=== PATIENT | female | born 1985 | race Two or more races ===

== ENCOUNTER 2024-12-23 10:20 | Day surgery (SDC) | payer MEDICAID, SELFPAY ==
[2024-12-22 12:36] VITALS: BMI 22.6
[2024-12-22 13:15] LABS: Basophils # (Auto) 0.1 Thou/mm3 (0.0-0.2); Basophils % (Auto) 1 % (0-2.5); Eosinophils # (Auto) 0.2 Thou/mm3 (0.0-0.5); Eosinophils % (Auto) 3 % (0-10); Hematocrit 38.6 % (36.0-46.0); Hemoglobin 12.8 g/dL (12.0-16.0); Immature Granulocytes Auto 0.02 Thou/mm3 (0.00-0.00); Lymphocytes # (Auto) 2.6 Thou/mm3 (1.0-4.8); Lymphocytes % (Auto) 39 % (10-50); Mean Corpuscular HGB Conc 33.2 g/dl (31.0-37.0); Mean Corpuscular Hemoglobin 28.0 pg (25.0-35.0); Mean Corpuscular Volume 85 fL (80-100); Monocytes # (Auto) 0.4 Thou/mm3 (0.0-0.8); Monocytes % (Auto) 6 % (0-12); Neutrophils # (Auto) 3.5 Thou/mm3 (1.8-7.7); Neutrophils % (Auto) 51 % (37-80); Nucleated Red Blood Cell # 0.00 Thou/mm3 (0.00-0.00); Nucleated Red Blood Cell % 0 /100 WBC (0); Platelet Count 241 Thou/mm3 (140-440); RDW Standard Deviation 42.8 fL (36.4-46.3); Red Blood Count 4.57 Miln/mm3 (4.00-5.20); White Blood Count 6.8 Thou/mm3 (3.6-11.0)
[2024-12-22 13:25] LABS: INR 1.0 (0.9-1.3); Partial Thromboplastin Time 29.2 Seconds (22.0-36.0); Prothrombin Time 11.1 Seconds (9.0-12.2)
[2024-12-22 13:31] LABS: Anion Gap 9 (7-16); BUN/Creatinine Ratio 11 Ratio (12-20); Blood Urea Nitrogen 8 mg/dL (9-23); Calcium 10.2 mg/dL (8.3-10.6); Carbon Dioxide 25.1 mMol/L (20.0-31.0); Chloride 106 mMol/L (98-107); Creatinine (Component) 0.7 mg/dL (0.6-1.3); Estimated Creatinine Clearance 83.6 mL/min (>60); Glucose 87 mg/dL (74-106); Osmolality,Calculated 276 (275-295); Potassium 4.1 mMol/L (3.4-5.1); Sodium 140 mMol/L (136-145); eGFR > 60 See Note
--- NOTE | 2024-12-22 15:40 | ESHP_ITS ---
RE: SUSIE DAVILA : 1985 DATE OF ADMISSION: 12/22/2024 The patient came to my office on 12/22/2024 for detailed preop history and physical examination. HISTORY OF PRESENT COMPLAINT: The patient presented to me earlier with history of pain, swelling, clicking, and locking of the right knee joint. Intensity of pain is 8-9/10. Unable to sleep. The patient is having difficulty in walking. Sleep is affected. Quality of life and activities of daily living is affected. PAST MEDICAL HISTORY: No history of diabetes mellitus, high blood pressure, asthma, seizure, chest pain, myocardial infarction or bleeding disorder. PAST SURGICAL HISTORY: None. DRUG HISTORY: Pain medication on and off. ALLERGIES: NONE KNOWN. FAMILY HISTORY AND SOCIAL HISTORY: Noncontributory in this case. PHYSICAL EXAMINATION: GENERAL: Normal built lady. VITAL SIGNS: Pulse is 86 per minute. Blood pressure is 120/77. NECK: Soft, supple. No masses felt. Trachea is centrally placed. CARDIOVASCULAR SYSTEM: First and second heart sounds normal. No murmur heard. RESPIRATORY SYSTEM: Bilateral vesicular breath sounds. CHEST: Clear. ABDOMEN: Soft, no masses felt. Bowel sounds present. EXTREMITIES: Right knee examination revealed mild swelling. There is 2+ tenderness. Active range of motion 0 to 115 degrees of flexion. Yary's test is positive. Drawer test and Adri test are negative. Neurovascularly, it is intact. Since the patient is symptomatic, an MRI scan confirmed torn meniscus with DJD and synovitis with increased joint fluid. Therefore, right knee arthroscopy was discussed and advised. Risks with anesthesia were explained and that includes, but not limited to reaction to anesthetic agents, cardiac arrest, rarely it might be fatal. Risk with operation includes infection and if that happens, the patient may need further surgical procedure. Other risks include delayed healing, wound dehiscence, etc. No guarantee is given regarding outcome of the procedure and/or relief of symptoms. The appropriate lab work was done. Surgery is booked for 12/23/2024. DT: 14:22:00 TT: 15:38:00 Ref: [id number] - TID: [id number]
[2024-12-23] VITALS (8 sets, daily range): BP systolic 99–120; BP diastolic 68–76; PULSE 76–97; RESP 12–20; TEMP 36.3–36.6; O2SAT 99–100; BMI 21.9
--- NOTE | 2024-12-23 14:17 | PD.SUROPNT ---
Date of Procedure 12/23/24 Pre Op Diagnosis 1. Torn medial meniscus right knee joint 2. 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 Partial medial meniscectomy 2. Partial lateral meniscectomy 3. Chondroplasty 4 partial synovectomy including excision plica Findings Refer dictation Procedure Description The patient was given general endotracheal anesthesia. Once satisfactory anesthesia was achieved, tourniquet was placed on right upper thigh. Following that the part was thoroughly prepped and draped. After using Esmarch the tourniquet pressure was raised to 350 mmHg. A skin incision was made proximal to lateral tibial plateau and arthroscope was introduced in the usual fashion. Another a skin incision was made in suprapatellar pouch area and outlet was established. The findings were noted as below. In suprapatellar pouch area significant synovial tissue inflammation was present. Medial plica was present as well. The undersurface of patella showed grade 2/3 chondromalacia. The anterior femoral condyle showed grade 3 chondromalacia. Soft tissue impingement was present. The patellar tracking was checked and found to be good. The medial compartment showed grade 2/3 chondromalacia for medial tibial plateau and medial femoral condyle. The medial meniscus showed degeneration and tear of the anterior horn. Another skin incision was made proximal to medial tibial plateau and a probe was introduced and findings were confirmed. The anterior cruciate ligament was intact. The anterior drawer test was performed and found to be good. The lateral compartment showed intact lateral femoral condyle . The tibial plateau showed some areas which was of a small sized completely denuded of cartilage. Those were on the most lateral side and anterior aspect of the lateral tibial plateau. Lateral meniscus showed complex tear of the body and anterior horn. A shaver was introduced and shaving of the anterior horn of medial meniscus was performed. Soft tissue impingement was shaved off. A basket was introduced and torn part of the body of the lateral meniscus was excised. With the help of lateral biter the torn part was excised. The shaving of the body and anterior horn of lateral meniscus was done. The chondroplasty of the anterior femoral condyle was performed. The soft tissue impingement was shaved off. A partial synovectomy including excision of plica was performed. Copious amount of irrigation was used to irrigate the knee joint. All the debris were removed. 3-0 Prolene was used to close the wound. About 20 mL of quarter percent Marcaine along with 10 mg of Duramorph was injected. Patient tolerated procedure well. Estimated blood loss was about 5 mL. Prognosis in this case is fair to good. Patient was taken to the recovery room in good condition. Anesthesia GETA Pathology / specimen None Estimated Blood Loss 2 Surgeon Berlin Sutherland MD Surgical Staff Operation Date: 12/23/24 13:30 Case Staff [employer]: Brent Serna
--- NOTE | 2024-12-23 14:25 | SUR.PHASEI ---
pt received from OR in recovery bay 5. pt asleep but responds to voice, breathing unlabored on oxymask 6l. v/s stable. pt dressing to right lower extremity cdi. report received from Arleen Singh and Jaime CHAN.
--- NOTE | 2024-12-23 14:45 | SUR.PHASEI ---
pt able to tolerate ice chips without difficulty swallowing or nausea/vomiting.
--- NOTE | 2024-12-23 15:37 | SUR.PHASEII ---
pt awake and alert, breathing unlabored on room air. v/s stable. pt dressing to right lower extremity cdi. pt able to transfer to wheelchair. d/c instructions given with Benigno in room, all questions answered. pt d/c via wheelchair with all belongings.
== END 2024-12-23 15:37 | disposition home or self-care (01) ==
PROVIDERS: PCP Nurse Practitioner Family; Referring Provider Orthopaedic Surgery; Visit Provider Orthopaedic Surgery
PROC: (CPT 29870; principal; 2024-12-23 13:30)
DX: S83.241A Other tear of medial meniscus, current injury, right knee, initial encounter (principal); M17.11 Unilateral primary osteoarthritis, right knee; S83.281A Other tear of lateral meniscus, current injury, right knee, initial encounter; M65.871 Other synovitis and tenosynovitis, right ankle and foot; M67.51 Plica syndrome, right knee; X58.XXXA Exposure to other specified factors, initial encounter
CPT/HCPCS: 29880; 36415; 80048; 85025; 85610; 85730; A4217; A4649; J0690; J1100; J1885; J2405; J2704; J3010